=== PATIENT | female | born 1980 | race Two or more races ===

== ENCOUNTER 2018-06-15 15:45 | Emergency (ER) | payer BC, OTHER ==
[2018-06-15 15:59] VITALS: TEMP 98.1; BMI 27.4
--- NOTE | 2018-06-15 16:26 | PDOC ---
History of Present Illness - General Chief Complaint: Vaginal Bleeding Stated Complaint: 8WKS/ BLEEDING/ PAIN Time Seen by Provider: 06/15/18 16:23 - History of Present Illness Initial Comments: 38yo A1 currently 8 weeks (LMP 04/14/18) presenting with vaginal bleeding and abdominal pain. Patient has had these symptoms for the past couple days, but they worsened. Patient called her sheet sewer who instructed her to come to the ED. Patient has had spotting for the past couple days and the bleeding increased; she has used three pantiliners today. The abdominal pain is rated 7/ 10 and described as "sharp" and "cramps." She has taken advil at home for pain which relieved her pain. It is constant but gets intermittently worse. Last bowel movement was loose without blood. Patient says she may have passed small clots, but has not seen tissue. No history of abdominal surgeries. She has not had an ultrasound for this . Denies fever, chills, chest pain or shortness of breath. Patient had blood work in her sheet sewer's office. She reports: 05/30 B-hc 06/14 B-hc Past History - Past Medical History Allergies/Adverse Reactions: Allergies Allergy/AdvReac Type Severity Reaction Status Date / Time No Known Allergies Allergy Verified 06/15/18 15:59 Home Medications: Ambulatory Orders NK [No Known Home Medication] 06/15/18 COPD: No Lung CA: No - Surgical History Cardiac Surgery: No Gastric Stapling: No - Immunization History Immunization Up to Date: No - Suicide/Smoking/Psychosocial Hx Smoking History: Never smoked Have you smoked in the past 12 months: No Information on smoking cessation initiated: No Hx Alcohol Use: Yes Drug/Substance Use Hx: No Review of Systems - Review of Systems Comments:: Constitutional: no fever, no chills HEENT: no throat pain, no dysphagia Cardiovascular: no chest pain, no palpitations Respiratory: no cough, no shortness of breath Gastrointestinal: +abdominal pain, no vomiting Genitourinary: +vaginal bleeding, no dysuria Musculoskeletal: no myalgia, no arthralgia Skin: no rash, no itching Neurologic: no headache, no weakness *Physical Exam - Vital Signs Last Vital Signs Temp Pulse Resp BP Pulse Ox 98.1 F 70 18 120/71 100 06/15/18 15:58 06/15/18 15:58 06/15/18 15:58 06/15/18 15:58 06/15/18 15:58 - Physical Exam Comments: General: Awake, alert, and fully oriented, in no acute distress Head: No signs of trauma Eyes: EOMI, sclera anicteric ENT: Moist mucus membranes Neck: Normal ROM, supple Lungs: Lungs clear, Normal breath sounds Cardio: Regular rhythm, S1 and S2 present Abdomen: Tender to palpation in suprapubic area. Soft. No guarding, no rebound, no masses. No CVA tenderness Extremities: Normal range of motion, Distal pulses present SKIN: Warm, Dry, normal turgor Neurologic: Cranial nerves II through XII grossly intact. Normal speech Pelvic: External genitalia covered with some blood. Vaginal vault is with blood. Cervix not well visualized. Uterus is noted to be of appropriate size and nontender. No cervical motion tenderness is seen. No masses are palpated. The adnexa are without masses or tenderness. ED Treatment Course - LABORATORY CBC & Chemistry Diagram: 06/15/18 17:00 06/15/18 17:00 Medical Decision Making - Medical Decision Making 38yo A1 currently 8 weeks presenting with vaginal bleeding and abdominal pain. DDX including but not limited to threatened , ectopic , subchorionic hemorrhage, UTI, cervical/vaginal lesion, thrombocytopenia, pre- eclampsia CBC, CMP, UA, UCx, B-hcg, TS, TVUS 975 tylenol 06/15/18 17:47 Bedside US: no contents seen in uterus 06/15/18 18:13 Pending TVUS report B-hcg~7280 (lower than patient's reported 8000 yesterday) No anemia or leukocytosis UA with 3+ blood, with positive nitrite and LE, however with only 2 WBC and 1.5 bacteria, likely contaminant with 2.7 epithelial cells 06/15/18 18:34 Patient is Rh positive TVUS without contents in gestational sac, my impression-- awaiting official report Will page patient's ob, Dr. Soriano 06/15/18 19:04 "The exam was performed utilizing transvaginal and transabdominal scanning. A small spherical fluid structure within or adjacent to the endometrial cavity with a mean diameter of 0.2 cm is seen which may represent a very early true gestational sac (at approximately 4 weeks 5 days) versus a pseudogestational sac associated with ectopic . There is no associated yolk sac or embryonic pole at this time. The endometrium is slightly thickened measuring 0.7 cm. No gross adnexal pathology is visualized. A 1.4 cm intramural uterine focus is seen probably representing a leiomyoma on a statistical basis. No free intraperitoneal fluid is seen. The ovaries demonstrate no discrete abnormality. No Doppler evidence of ovarian torsion, sensitivity 70%. Impression: As noted above. " Dr. Do spoke with patient's ob who will follow up with patient on Tuesday. Patient given strong return precautions. Plan to discharge 06/15/18 19:25 *DC/Admit/Observation/Transfer Diagnosis at time of Disposition: Vaginal bleeding during , Miscarriage, threatened, early - Discharge Dispostion Disposition: HOME Condition at time of disposition: Stable - Referrals Referrals: Veda Soriano [Primary Care Provider] - - Patient Instructions Printed Discharge Instructions: DI for Threatened Additional Instructions: You were seen in the Emergency Department for vaginal bleeding and abdominal during . Blood work showed your b-hcg level is 7280 today. Ultrasound did not confirm an intrauterine . Follow-up with your sheet sewer at your appointment on Tuesday. Your workup is not complete until you do so. If you cannot check this level on Tuesday, return to this ED. Pelvic rest is advised until your sheet sewer says otherwise. Return to the Emergency Department if you experience: -heavy bleeding (more than two pads per hour for two hours) -severe pain -lightheadedness -shortness of breath -high fever -any other concerning symptoms - Post Discharge Activity
[2018-06-15] MEDS ORDERED: ACETAMINOPHEN 325 MG TABLET (FP) PO ONE (16:44)
[2018-06-15] MEDS ORDERED: ACETAMINOPHEN 325 MG TABLET (FP) ONE (17:10)
[2018-06-15 17:24] LABS: BASO % 0.8 % (0-2.0); EOS % 1.7 % (0-4.5); HEMATOCRIT 33.1 % (32.4-45.2); HEMOGLOBIN 11.6 GM/dL (10.7-15.3); LYMPH % 29.6 % (8-40); MCH 32.4 pg (25.7-33.7); MEAN CELL VOLUME 92.5 fl (80-96); MEAN PLT VOLUME 7.5 fl (7.5-11.1); MONO % 7.4 % (3.8-10.2); NEUT % 60.5 % (42.8-82.8); PLATELET COUNT 320 K/MM3 (134-434); RBC 3.58 M/mm3 (3.60-5.2); RDW 13.1 % (11.6-15.6); WHITE BLOOD COUNT 3.9 K/mm3 (4.0-10.0)
[2018-06-15] MEDS ORDERED: SODIUM CHLORIDE 1,000 ML IV STA (17:28)
[2018-06-15 17:35] LABS: EPI CELLS 2.7 /HPF (0-5/HPF); URINE APPEARANCE CLEAR; URINE BACTERIA 1.5 /hpf (NEGATIVE); URINE BILIRUBIN 1+ (NEGATIVE); URINE CASTS 3 /lpf (0-8); URINE COLOR RED; URINE GLUCOSE (UA) NEGATIVE (NEGATIVE); URINE KETONE NEGATIVE (NEGATIVE); URINE LEUK ESTERASE 1+ (NEGATIVE); URINE NITRITE POSITIVE (NEGATIVE); URINE PROTEIN 3+ (NEGATIVE); URINE RBC 1 /hpf (0-4); URINE UROBILINOGEN 0.2 mg/dL (0.2-1.0); URINE WBC 2 /hpf (0-5)
[2018-06-15 18:19] LABS: ALBUMIN 3.8 g/dl (3.4-5.0); ALK PHOS 57 U/L (45-117); ANION GAP 6 MMOL/L (8-16); BILIRUBIN,TOTAL 0.4 mg/dL (0.2-1); BLOOD UREA NITROGEN 11 mg/dL (7-18); CALCIUM 9.5 mg/dL (8.5-10.1); CHLORIDE 103 mmol/L (98-107); CO2 25 mmol/L (21-32); CREATININE 0.9 mg/dL (0.55-1.3); GLUCOSE,RANDOM 88 mg/dL (74-106); SGOT/AST 25 U/L (15-37); SGPT/ALT 30 U/L (13-61); SODIUM 134 mmol/L (136-145); TOT PROT 7.8 g/dl (6.4-8.2)
--- NOTE | 2018-06-15 19:04 | PDOC ---
Documentation entered by Yandy Arrington SCRIBE, acting as scribe for Janet Do MD. Janet Do MD: This documentation has been prepared by the Nury escoto Adrianna, SCRIBE, under my direction and personally reviewed by me in its entirety. I confirm that the documentation accurately reflects all work, treatment, procedures, and medical decision making performed by me. Attending Attestation - Resident Resident Name: Leny Reyes - ED Attending Attestation I have performed the following: I have examined & evaluated the patient, The case was reviewed & discussed with the resident, I agree w/resident's findings & plan, Exceptions are as noted - HPI HPI: 38 year old female A1 (currently at 8 weeks gestation), with no significant PMH, who presents to the emergency department today for vaginal bleeding and abdominal pain for 2 days. Patient notes she began experiencing vaginal spotting 2 days ago, which has progressively worsened over time to soaking through 3 panty liners. She also endorses associated lower abdominal pain, which is sharp in nature, rated a 7/10, and alleviated with taking Advil. Patient spoke to her OBGYN about her symptoms, who advised that she come to the ED for treatment. LMP was over 2 months ago. The patient denies chest pain, shortness of breath, headache and dizziness. Denies fever, chills, nausea, vomit, diarrhea and constipation. Denies dysuria, frequency, urgency and hematuria. Allergies: NKA Past surgical history: None reported Social history: No reported OBGYN: Dr. Veda Soriano 06/15/18 18:35 - Physicial Exam PE: 06/15/18 18:14 awake alert lungs clear bilaterally heart rrr no mrg abd soft nt nd ext wwp. ( pelvic exam per dr. reyes) nuero alert oriented x 3. - Medical Decision Making 06/15/18 18:15 38 yo G 2po ( 1 miscarriage ) here with vaginal bleeding. lmp 04/14, bleeding similar to period, cramping also. passed tissue here in ED. on exam nontender abd. focused ED US uterus , no gestational sac, no yolk sca no pole. will obtain TVUS in radiology. labs r/o anemia, bhcg, type. differential includes incomplet vs. complete ab, ectopic less likley as passed tissue in ed. 06/15/18 19:02 radiololg TVUS with small gestational sac 4 wk 5 days. no pole or yolk sac. BHCG 7000 + per patient was 8000 day prior. sridhar require close followup for serial bhcg. blood type A positive. 06/15/18 19:04 06/15/18 19:11 EXAM#: TYPE/EXAM: RESULT: [id number] US/TRANSVAGINAL US PREG Transvaginal obstetrical ultrasound Clinical information: confirm IUP; 8 weeks with vaginal bleeding The exam was performed utilizing transvaginal and transabdominal scanning. A small spherical fluid structure within or adjacent to the endometrial cavity with a mean diameter of 0.2 cm is seen which may represent a very early true gestational sac (at approximately 4 weeks 5 days) versus a pseudogestational sac associated with ectopic . There is no associated yolk sac or embryonic pole at this time. The endometrium is slightly thickened measuring 0.7 cm. No gross adnexal pathology is visualized. A 1.4 cm intramural uterine focus is seen probably representing a leiomyoma on a statistical basis. No free intraperitoneal fluid is seen. The ovaries demonstrate no discrete abnormality. No Doppler evidence of ovarian torsion, sensitivity 70%. Reported By: Bayron Atkins MD 06/15/18 19:07 06/15/18 19:21 d/w covering OB dr Peralta has appoitnment with us on tuesday ( 5 days from today) will give copy of labs and us dc home.
[2018-06-15 19:40] VITALS: BP 129/87; PULSE 66
== END 2018-06-15 19:40 | disposition home or self-care (01) ==
LOC: JER 15:45
PROC: 3E0337Z Introduction of Electrolytic and Water Balance Substance into Peripheral Vein, Percutaneous Approach (ICD-10-PCS; principal; 2018-06-15)
PROC: BY49ZZZ Ultrasonography of First Trimester, Single Fetus (ICD-10-PCS; 2018-06-15)
DX: O26.891 Other specified pregnancy related conditions, first trimester (principal); O20.0 Threatened abortion; Z3A.08 8 weeks gestation of pregnancy
CPT/HCPCS: 36415; 76817-TC; 80053; 81003; 84702; 85025; 86850; 86900; 86901; 87086; 99282-25; J7030

== ENCOUNTER 2023-03-04 16:53 | Emergency (ER) | payer BC, OTHER ==
[2023-03-04 17:00] VITALS: BP 135/87; PULSE 67; RESP 18; TEMP 98; BMI 28.3
[2023-03-04] MEDS ORDERED: ACETAMINOPHEN 500 MG TABLET (FP) PO ONE (18:02)
[2023-03-04] MEDS ORDERED: IBUPROFEN 600 MG TABLET (FP) PO ONE ×2 (18:02→18:06)
[2023-03-04] MEDS ORDERED: ACETAMINOPHEN 325 MG TABLET (FP) ONE (18:06)
== END 2023-03-04 19:12 | disposition home or self-care (01) ==
LOC: JER 16:53 → JERFT 16:53
DX: M25.571 Pain in right ankle and joints of right foot (principal); W51.XXXA Accidental striking against or bumped into by another person, initial encounter
CPT/HCPCS: 73610-TC-RT-FY; 73630-TC-RT-FY; 99283-25